=== PATIENT | female | born 1990 | race American Indian/Alaskan Native ===

== ENCOUNTER 2020-05-09 03:46 | Emergency (ER) | payer MEDICAID ==
[2020-05-09 03:56] VITALS: BP 102/65
--- NOTE | 2020-05-09 03:56 | Emergency Department Report ---
ED ENT HPI - General Chief complaint: Sore Throat Stated complaint: SORE THROAT Time Seen by Provider: 05/09/20 03:50 Source: patient Mode of arrival: Ambulatory Limitations: No Limitations - History of Present Illness Initial comments: 29-year-old female who is currently about 14 weeks presents to the ER today complaint of sore throat. Patient states that her symptoms started about 1 week ago. Patient reports pain with swallowing. She reports associated cough. She denies any fever or chills. She denies any runny nose or nasal congestion. She denies any difficulty opening her mouth or drooling. She denies any ill contacts. She reports no other symptoms at this time. complaint: sore throat -: Gradual (1 week ) - Related Data Previous Rx's Medication Instructions Recorded Last Taken Type Amoxicillin [Trimox CAP] 500 mg PO Q12H #20 capsule 05/09/20 Unknown Rx Allergies Allergy/AdvReac Type Severity Reaction Status Date / Time No Known Allergies Allergy Verified 05/09/20 03:53 ED Dental HPI - General Chief complaint: Sore Throat Stated complaint: SORE THROAT Time Seen by Provider: 05/09/20 03:50 Source: patient Mode of arrival: Ambulatory Limitations: No Limitations - Related Data Previous Rx's Medication Instructions Recorded Last Taken Type Amoxicillin [Trimox CAP] 500 mg PO Q12H #20 capsule 05/09/20 Unknown Rx Allergies Allergy/AdvReac Type Severity Reaction Status Date / Time No Known Allergies Allergy Verified 05/09/20 03:53 ED Review of Systems ROS: Stated complaint: SORE THROAT Other details as noted in HPI Comment: All other systems reviewed and negative Constitutional: denies: chills, fever ENT: throat pain. denies: ear pain, dental pain, hearing loss, epistaxis, congestion Respiratory: cough Cardiovascular: denies: chest pain, palpitations Gastrointestinal: denies: abdominal pain, nausea, vomiting, diarrhea, constipation, hematemesis, hematochezia Genitourinary: denies: urgency, dysuria, frequency, hematuria, discharge, abnormal menses, dyspareunia Skin: denies: rash, lesions Neurological: denies: headache, weakness, paresthesias Psychiatric: denies: anxiety, depression ED Past Medical Hx - Past Medical History Previous Medical History?: No - Surgical History Past Surgical History?: No - Social History Smoking Status: Never Smoker Substance Use Type: None - Medications Home Medications: Home Medications Medication Instructions Recorded Confirmed Last Taken Type Amoxicillin [Trimox CAP] 500 mg PO Q12H #20 capsule 05/09/20 Unknown Rx ED Physical Exam - General Limitations: No Limitations General appearance: alert, in no apparent distress - Head Head exam: Present: atraumatic, normocephalic, normal inspection - Eye Eye exam: Present: normal appearance, PERRL, EOMI Pupils: Present: normal accommodation - ENT ENT exam: Present: normal exam, mucous membranes moist - Expanded ENT Exam Expanded Mouth exam: Absent: drooling, trismus, muffled voice, tongue normal, tongue elevation, laceration Throat exam: Positive: tonsillar erythema, other (Uvula mildly swollen and erythematous). Negative: tonsillomegaly, tonsillar exudate, R peritonsillar mass, L peritonsillar mass - Neck Neck exam: Present: normal inspection, lymphadenopathy (Anterior cervical). Absent: tenderness, full ROM - Respiratory Respiratory exam: Absent: normal lung sounds bilaterally - Cardiovascular Cardiovascular Exam: Present: regular rate, normal rhythm - Neurological Exam Neurological exam: Present: alert, oriented X3, CN II-XII intact, normal gait - Psychiatric Psychiatric exam: Present: normal affect, normal mood ED Course Vital Signs 05/09/20 03:50 Temperature 98.8 F Pulse Rate 78 Respiratory 17 Rate Blood Pressure 102/65 O2 Sat by Pulse 95 Oximetry ED Medical Decision Making - Medical Decision Making 29-year-old female who is currently about 14 weeks presents to the ER today complaint of sore throat. Patient states that her symptoms started about 1 week ago. Patient reports pain with swallowing. She reports associated cough. She denies any fever or chills. She denies any runny nose or nasal congestion. She denies any difficulty opening her mouth or drooling. She denies any ill contacts. She reports no other symptoms at this time. 0420: The patient is resting comfortably and is well-appearing and in no acute distress. There is no respiratory distress, no stridor and the mental status is normal. The neurological exam is normal, and there is no significant signs of dehydration. The history, exam, and the patient current condition does not suggest an infectious process such as meningitis, retropharyngeal abscess, epiglottitis, peritonsillar abscess, Jose's angina, mastoiditis, orbital cellulitis, periorbital cellulitis, severe meningitis, malignant otitis externa, sepsis or any significant pathology warranting further testing, continued ED treatment, admission, consultation or any other evaluation at this time. The vital signs have been stable. The patient condition is stable and appropriate for discharge. Critical care attestation.: If time is entered above; I have spent that time in minutes in the direct care of this critically ill patient, excluding procedure time. ED Disposition Clinical Impression: Pharyngitis Disposition: TO HOME OR SELFCARE Is pt being admited?: No Does the pt Need Aspirin: No Condition: Stable Instructions: Pharyngitis, [id number] Additional Instructions: Take the antibiotic as prescribed. You can take Tylenol as needed for pain. You can also use [id number] throat lozenges to help with the pain. Or you can also use warm salt water gargles. Follow-up closely with your primary care doctor. Return to the ER if your symptoms worsens or changes in any way. Prescriptions: Amoxicillin [Trimox CAP] 500 mg PO Q12H #20 capsule Referrals: AARON MCCLAIN MD [Staff Physician] - 3-5 Days Time of Disposition: 03:58
[2020-05-09] MEDS ORDERED: ACETAMINOPHEN 325 MG TAB PO ONE (03:58)
== END 2020-05-09 04:45 | disposition home or self-care (01) ==
LOC: ED 03:46
DX: O26.891 Other specified pregnancy related conditions, first trimester (principal); J02.9 Acute pharyngitis, unspecified; Z79.2 Long term (current) use of antibiotics; Z3A.14 14 weeks gestation of pregnancy
CPT/HCPCS: 99282